=== PATIENT | female | born 1980 | race Two or more races ===

== ENCOUNTER → 2024-11-29 | Outpatient (CLI) | payer MEDICAID, SELFPAY ==
--- NOTE | 2024-11-29 09:57 | XR_ITS ---
Examination: Thoracic spine 3 views TECHNIQUE: AP, lateral, coned lateral upper dorsal spine 3 views Exam date and time: November 29, 2024 1023 hours INDICATIONS: Back pain months. FINDINGS: Satisfactory alignment thoracic vertebral bodies No thoracic fracture Mild diffuse thoracic disc narrowing IMPRESSION: Mild diffuse thoracic degenerative disc disease
== END | disposition home or self-care (01) ==
PROVIDERS: PCP Physician Assistant; Referring Provider Physician Assistant; Visit Provider Physician Assistant
DX: M51.34 Other intervertebral disc degeneration, thoracic region (principal)
CPT/HCPCS: 72072

== ENCOUNTER → 2024-12-09 | Outpatient (CLI) | payer MEDICAID, SELFPAY ==
--- NOTE | 2024-12-09 12:30 | XR_ITS ---
Examination: Breast ultrasound, unilateral, right complete Date and time of exam: December 09, 2024 1311 hours INDICATIONS: Right breast sonogram January 20, 2024 10:00 nodule 7 x 6 mm Technique: Real-time morley scale ultrasonographic imaging performed right breast including all 4 quadrants as well as nipple retroareolar and axillary region. Findings: 10:00 nodule 6 x 5 mm circumscribed IMPRESSION: BI-RADS Category 2: Benign findings
== END | disposition home or self-care (01) ==
LOC: CDIM 12:28
PROVIDERS: PCP Physician Assistant; Referring Provider Physician Assistant; Visit Provider Physician Assistant
DX: N63.0 Unspecified lump in unspecified breast (principal)
CPT/HCPCS: 76641